=== PATIENT | female | born 1995 | race Caucasian/White ===

== ENCOUNTER 2018-06-06 09:14 | Outpatient (CLI) | payer BC ==
[~2018-06-06 09:14] MED LIST: Gadobenate Dimeglumine 529 MG/1 ML (20ML VIAL) ONE
--- NOTE | 2018-06-06 11:03 | MRI ---
MRI OF THE BRAIN WITHOUT AND WITH CONTRAST: COMPARISON: None. HISTORY: Left hand numbness for 3 months. TECHNIQUE: Multiplanar, multisequence images are obtained in an MRI of the brain without and with contrast. FINDINGS: The brain demonstrates normal signal intensity on all obtained sequences. No restricted diffusion or abnormal enhancement are seen on this examination. There is no evidence of hydrocephalus, intracran ial hemorrhage, or extraaxial fluid collection. The expected flow voids are present. The corpus callosum, pituitary, and craniocervical junction are unremarkable. The calvarium and overlying soft tissues are unremarkable. The visualized paranasal sinuses and mast oid air cells are well aerated. IMPRESSION: No evidence of acute intracranial abnormality. POS: [facility]
== END 2018-06-06 09:15 | disposition home or self-care (01) ==
LOC: SCSMRI 09:14
PROVIDERS: ATTEND Psychiatry & Neurology Neurology
DX: R20.2 Paresthesia of skin (principal)
CPT/HCPCS: 70553; A9579